=== PATIENT | female | born 1945 | race African-American/Black ===

== ENCOUNTER → 2017-03-28 | Outpatient (CLI) | payer MEDICARE, OTHER | END | disposition home or self-care (01) | LOC: LAB.O 16:41 | PROVIDERS: ATTEND Family Medicine | DX: I10 Essential (primary) hypertension (principal); E11.9 Type 2 diabetes mellitus without complications; E03.9 Hypothyroidism, unspecified ==

== ENCOUNTER → 2018-02-13 | Outpatient (CLI) | payer MEDICARE, OTHER ==
--- NOTE | 2018-02-14 08:17 | US ---
THYROID ULTRASOUND CLINICAL INFORMATION: Thyroid nodule TECHNIQUE: Thyroid sonography was performed. COMPARISON: None FINDINGS: Thyroid size: Right thyroid lobe measures 3.7 x 1.5 x 2.3 cm. Left thyroid lobe measures 4.0 x 1.4 x 1.3 cm. Isthmic thickness is normal at 2 mm. Texture: Hypoechoic, inhomogeneous Estimated total number of nodules >/=1 cm: 1 In the right thyroid lobe, in the lower pole, a hypoechoic nodule is seen which measures 2 x 1.4 x 1.6 cm. Color Doppler images show little or no flow within this nodule. At this size, sono guided fine-needle aspiration biopsy is recommended unless already performed. An additional hypoechoic lesion which could be debris filled cyst or another nodule measures 0.8 x 0.6 x 0.6 cm. This is also in the inferior right thyroid lobe but more medial and anterior in location compared to the previous larger nodule noted above. In the upper right thyroid lobe another nodule measures 0.5 x 0.5 x 0.4 cm. Along the posterior aspect the left thyroid lobe a hypoechoic nodule measures 0.7 x 0.5 x 0.3 cm. This could be within the thyroid gland or could be prominent parathyroid. Correlate with serum calcium values. In the the anterior mid left thyroid lobe another small nodule measures 0.4 x 0.4 x 0.2 cm. A third small nodule measures 0.4 x 0.5 x 0.2 cm. These can be followed up with a repeat thyroid sonogram in 1-2 years. IMPRESSION: Dominant nodule in the posteroinferior right thyroid lobe measuring 2 cm in greatest dimension. Further evaluation is recommended as discussed above. Electronically signed by: Rj Hough MD 02/14/2018 8:16 AM CDT
== END ==
LOC: US 15:00
PROVIDERS: ATTEND Family Medicine
DX: E04.1 Nontoxic single thyroid nodule (principal)

== ENCOUNTER → 2018-08-29 | Outpatient (CLI) | payer MEDICARE, OTHER | LOC: GMAJ 17:24 | PROVIDERS: ATTEND Family Medicine | DX: E03.9 Hypothyroidism, unspecified (principal) ==

== ENCOUNTER → 2020-03-13 | Outpatient (CLI) | payer MEDICARE, OTHER | LOC: BFHH 12:48 | PROVIDERS: ATTEND Family Medicine | DX: I10 Essential (primary) hypertension (principal); M79.7 Fibromyalgia; M43.22 Fusion of spine, cervical region ==

== ENCOUNTER → 2020-12-14 | Outpatient (CLI) | payer MEDICARE, OTHER | LOC: GMAJ 14:22 | PROVIDERS: ATTEND Family Medicine | DX: M06.4 Inflammatory polyarthropathy (principal); I10 Essential (primary) hypertension ==

== ENCOUNTER 2020-12-19 12:36 | Emergency (ER) | payer MEDICARE, OTHER ==
--- NOTE | 2020-12-19 12:38 | ED.PDOC ---
History of Present Illness - General Stated Complaint: Nausea and vomiting Time Seen by Provider: 12/19/20 12:37 Source: patient, family - History of Present Illness Initial Comments: Patient had her first shot of a Covid vaccination series 3 days ago. Following the shot she became nauseated. She has vomited 10 times since last night, and it is now becoming slightly blood-tinged.. Also complains of diarrhea which consists of 4 non-bloody explosive liquid stools in the last 24 hours.. Patient denies fever chills, cough, shortness of breath, upper respiratory symptoms. She is not complaining of abdominal pain except when she vomits. Patient unable to take her usual medications due to vomiting. Patient did not report any hives, swelling, itching. Timing/Duration: other - 3 days Improving Factors: nothing Worsening Factors: nothing Associated Symptoms: nausea/vomiting Allergies/Adverse Reactions: Allergies Acetaminophen [From Oxycodone W/Acetaminophen] Allergy (Verified 08/24/15 17:42) Vomitting Codeine Allergy (Verified 08/24/15 17:42) Vomitting Latex Allergy (Verified 08/24/15 17:42) Other Dangelo skin, per patient Morphine Allergy (Verified 08/24/15 17:42) Vomitting Nitrofurantoin Allergy (Verified 08/24/15 17:42) Diarrhea Oxycodone [From Oxycodone W/Acetaminophen] Allergy (Verified 08/24/15 17:42) Vomitting Metoclopramide [From Reglan] Adverse Reaction (Severe, Verified 08/24/15 17:36) Other State of depression Out of touch with surroundings Amitriptyline Adverse Reaction (Verified 08/24/15 17:42) Other rapid pulse, confusion Aspirin [From Talwin Compound] Adverse Reaction (Verified 08/24/15 17:36) Vomitting Cefadroxil Adverse Reaction (Verified 08/24/15 17:42) Other yeast infection Iron Adverse Reaction (Verified 08/24/15 17:42) Other "severe constipation" Montelukast [From Singulair] Adverse Reaction (Verified 08/24/15 17:42) Other Severe itching, whelps Oxazepam [From Serax] Adverse Reaction (Verified 08/24/15 17:42) Other unable to move arms, body limpness Pentazocine [From Talwin Compound] Adverse Reaction (Verified 08/24/15 17:36) Vomitting Sumatriptan [From Imitrex] Adverse Reaction (Verified 08/24/15 17:42) Other rapid pulse, lightheadedness Valacyclovir [From Valtrex] Adverse Reaction (Verified 08/24/15 17:42) Other N/V, "severe" dizziness, stomach pain, fevers/chills, "pain all over" Home Medications: Ambulatory Orders Atenolol [Tenormin] 50 mg PO BID 08/24/15 Oxybutynin Chloride [Oxybutynin Chloride ER] 25 mg PO DAILY 08/24/15 l-Methylfolate W/ Vitamin B6-V [Folbic Rf] 1 tab PO DAILY 08/24/15 Amlodipine Besylate 10 mg PO DAILY 12/19/20 B Complex 1 tablet PO BEDTIME 12/19/20 Donepezil Hydrochloride 10 mg PO DAILY 12/19/20 Esomeprazole Magnesium 40 mg PO DAILY 12/19/20 Famciclovir 500 mg PO BID 12/19/20 Famotidine 20 mg PO DAILY 12/19/20 Fexofenadine HCl [Allergy Relief] 180 mg PO DAILY 12/19/20 Gabapentin 800 mg PO BID 12/19/20 Hydroxychloroquine Sulfate [Hydroxychloroquine Sulfat] 1 tablet PO BID 12/19/20 Magnesium [Magnesium 250 mg] 1 tab PO DAILY 12/19/20 Olmesartan Medoxomil-Hydrochlo [Olmesartan Medoxomil/Hydr 40-25 mg] 1 tab PO DAILY 12/19/20 Ondansetron Odt [Zofran ODT] 4 mg PO Q6H PRN 3 Days #12 tab 12/19/20 Venlafaxine HCl [Venlafaxine HCl ER] 37.5 mg PO DAILY 12/19/20 Review of Systems - Review of Systems Constitutional: States: chills. Denies: fever EENTM: States: no symptoms reported Respiratory: States: no symptoms reported Cardiology: States: no symptoms reported Gastrointestinal/Abdominal: States: see HPI, abdominal pain, diarrhea, nausea, vomiting Genitourinary: States: no symptoms reported Musculoskeletal: States: no symptoms reported Skin: States: no symptoms reported Neurological: States: no symptoms reported Endocrine: States: no symptoms reported Hematologic/Lymphatic: States: no symptoms reported Past Medical History (General) - Patient Medical History Hx Congestive Heart Failure: No Hx Hypertension: Yes Hx Diabetes: No Hx Gastroesophageal Reflux: Yes - Vaccination History Hx Tetanus, Diphtheria Vaccination: No - unknown Hx Influenza Vaccination: Yes - 07/2015 Hx Pneumococcal Vaccination: Yes - 07/2015 - Social History Hx Tobacco Use: No Family Medical History - Family History Mother Living Status: Still Living Hx Family Hypertension: Yes Hx Cardiac Disease: Yes - enlarged heart Hx Family;Other: esophageal problem Father Living Status: Age at (years of age): 84 Hx Family Cancer: Yes - colon Paternal Grandparents Name: grandmother Living Status: Age at (years of age): 94 Hx Cardiac Disease: Yes - enlarged heart Hx Family;Other: poor circulation, bilateral BKA Physical Exam - Physical Exam General Appearance: Alert, Comfortable Ears, Nose, Throat: normal pharynx, other - Moist mucous membranes Neck: non-tender, full range of motion, supple Respiratory: normal breath sounds Cardiovascular/Chest: regular rate, rhythm Gastrointestinal/Abdominal: normal bowel sounds, non tender, soft Back Exam: normal inspection, no CVA tenderness Extremity: normal range of motion, no calf tenderness 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 Zofran 4 mg IV. As of 1:51 PM the patient had urinated and the nausea had subsided. - Results/Orders Results/Orders: Rapid nasal swab testing COVID-19 negative Laboratory Results - last 24 hr 12/19/20 12/19/20 13:03 13:03 WBC 8.6 RBC 4.53 Hgb 13.5 Hct 40.8 MCV 90.0 MCH 29.9 MCHC 33.2 RDW 14.8 H Plt Count 307 MPV 7.6 Absolute Neuts (auto) 6.30 Absolute Lymphs (auto) 1.70 Absolute Monos (auto) 0.50 Absolute Eos (auto) 0.10 Absolute Basos (auto) 0.00 Neutrophils % 73.1 Lymphocytes % 19.5 L Monocytes % 6.3 Eosinophils % 0.7 L Basophils % 0.4 Sodium 142 Potassium 3.0 L Chloride 102 Carbon Dioxide 29 Anion Gap 14.0 BUN 9 Creatinine 0.73 BUN/Creatinine Ratio 12.3 Random Glucose 123 H Serum Osmolality 283.2 Calcium 8.9 Total Bilirubin 0.6 AST 24 ALT 26 Alkaline Phosphatase 75 Serum Total Protein 7.6 Albumin 4.0 Globulin 3.6 H Albumin/Globulin Ratio 1.1 Departure - Departure Clinical Impression: Gastroenteritis, Hypertension Time of Disposition: 13:50 Disposition: Discharge to Home or Self Care Condition: Good Departure Forms: ED Discharge - Pt. Copy, Patient Portal Self Enrollment Instructions: Viral Gastroenteritis, Adult (DC) Diet: other - Start with a clear liquid diet and then gradually advance diet as tolerated. Referrals: Matt Coleman MD [Primary Care Provider] - 1-2 Weeks Prescriptions: Ondansetron Odt [Zofran ODT] 4 mg PO Q6H PRN 3 Days #12 tab PRN Reason: Vomiting Home Medications: Ambulatory Orders Atenolol [Tenormin] 50 mg PO BID 08/24/15 Oxybutynin Chloride [Oxybutynin Chloride ER] 25 mg PO DAILY 08/24/15 l-Methylfolate W/ Vitamin B6-V [Folbic Rf] 1 tab PO DAILY 08/24/15 Amlodipine Besylate 10 mg PO DAILY 12/19/20 B Complex 1 tablet PO BEDTIME 12/19/20 Donepezil Hydrochloride 10 mg PO DAILY 12/19/20 Esomeprazole Magnesium 40 mg PO DAILY 12/19/20 Famciclovir 500 mg PO BID 12/19/20 Famotidine 20 mg PO DAILY 12/19/20 Fexofenadine HCl [Allergy Relief] 180 mg PO DAILY 12/19/20 Gabapentin 800 mg PO BID 12/19/20 Hydroxychloroquine Sulfate [Hydroxychloroquine Sulfat] 1 tablet PO BID 12/19/20 Magnesium [Magnesium 250 mg] 1 tab PO DAILY 12/19/20 Olmesartan Medoxomil-Hydrochlo [Olmesartan Medoxomil/Hydr 40-25 mg] 1 tab PO DAILY 12/19/20 Ondansetron Odt [Zofran ODT] 4 mg PO Q6H PRN 3 Days #12 tab 12/19/20 Venlafaxine HCl [Venlafaxine HCl ER] 37.5 mg PO DAILY 12/19/20 Comments: If you develop uncontrollable vomiting, large amounts of blood in the vomit, bloody stools or generally feel worse then return to the emergency room. Additional occasional vomiting or diarrhea may occur. See your doctor and notify your fitness consultant if your are not completely recovered in the next day or 2. Take [id number] Pepcid pills twice per day to reduce stomach acid irritation.
[2020-12-19] MEDS ORDERED: SODIUM CHLORIDE 0.9% 1000ML 1,000 ML IVS ONE (12:44)
[2020-12-19] MEDS ORDERED: ONDANSETRON INJ 4 MG/2 ML VIAL IV ONE (12:44)
[2020-12-19 13:05] VITALS: O2SAT 95
[2020-12-19] MEDS ORDERED: FAMOTIDINE IV PREMIX 20 MG in PREMIX BAG 1 BAG IVPB ONE (13:10)
[2020-12-19 14:09] VITALS: BP 169/57; TEMP 97.3
== END 2020-12-19 14:09 | disposition home or self-care (01) ==
LOC: ER 12:36
DX: K52.9 Noninfective gastroenteritis and colitis, unspecified (principal); I10 Essential (primary) hypertension; Z20.822 Contact with and (suspected) exposure to COVID-19; K21.9 Gastro-esophageal reflux disease without esophagitis; Z79.899 Other long term (current) drug therapy; Z88.8 Allergy status to other drugs, medicaments and biological substances; Z88.1 Allergy status to other antibiotic agents; Z88.6 Allergy status to analgesic agent; Z88.5 Allergy status to narcotic agent; Z91.040 Latex allergy status
CPT/HCPCS: 36415; 80053; 85025; 87635; J2405; J3490; J7030

== ENCOUNTER 2020-12-20 12:54 | Emergency (ER) | payer MEDICARE, OTHER ==
[2020-12-20 13:13] VITALS: TEMP 98.3
[2020-12-20] MEDS ORDERED: ONDANSETRON ODT 8 MG TAB ONE (13:55)
[2020-12-20] MEDS: ONDANSETRON ODT 8 MG TAB SL ONE (14:08)
[2020-12-20] MEDS: ONDANSETRON INJ 4 MG/2 ML VIAL IV ONE (14:44)
[2020-12-20] MEDS: SUCRALFATE 1 GM/10 ML 1 GM UD PO ONE (16:11)
[2020-12-20] MEDS: FAMOTIDINE 20 MG TAB PO ONE (16:11)
[2020-12-20] MEDS: PROMETHAZINE HCL 25 MG TAB PO ONE (16:11)
[2020-12-20] MEDS: KCL 20 MEQ/NS 1,000 ML IVS ONE (16:44)
[2020-12-20] MEDS: SCOPOLAMINE PATCH 1.5MG 1 EA TD ONE (16:50)
--- NOTE | 2020-12-20 16:54 | ED.PDOC ---
History of Present Illness - General Chief Complaint: GI Problem Stated Complaint: nausea and vomiting Time Seen by Provider: 12/20/20 13:01 Source: patient Exam Limitations: no limitations - History of Present Illness Initial Comments: The patient is a 75-year-old female presented emergency room secondary to some persistent nausea. She has not really been throwing up. No further diarrhea. She did not have a good oral intake over the last 24 hours secondary to nausea. Due to the weather she is not yet been able to fill her Zofran. No fever. No point abdominal pain. No syncope. No back pain. No urinary symptoms. Stomach is simply still queasy. Timing/Duration: other - 48 hours Severity: moderate Improving Factors: nothing Worsening Factors: eating Associated Symptoms: denies symptoms Allergies/Adverse Reactions: Allergies Acetaminophen [From Oxycodone W/Acetaminophen] Allergy (Verified 12/20/20 13:14) Vomitting Codeine Allergy (Verified 12/20/20 13:14) Vomitting Latex Allergy (Verified 12/20/20 13:14) Other Dangelo skin, per patient Morphine Allergy (Verified 12/20/20 13:14) Vomitting Nitrofurantoin Allergy (Verified 12/20/20 13:14) Diarrhea Oxycodone [From Oxycodone W/Acetaminophen] Allergy (Verified 12/20/20 13:14) Vomitting Metoclopramide [From Reglan] Adverse Reaction (Severe, Verified 12/20/20 13:14) Other State of depression Out of touch with surroundings Amitriptyline Adverse Reaction (Verified 12/20/20 13:14) Other rapid pulse, confusion Aspirin [From Talwin Compound] Adverse Reaction (Verified 12/20/20 13:14) Vomitting Cefadroxil Adverse Reaction (Verified 12/20/20 13:14) Other yeast infection Iron Adverse Reaction (Verified 12/20/20 13:14) Other "severe constipation" Montelukast [From Singulair] Adverse Reaction (Verified 12/20/20 13:14) Other Severe itching, whelps Oxazepam [From Serax] Adverse Reaction (Verified 12/20/20 13:14) Other unable to move arms, body limpness Pentazocine [From Talwin Compound] Adverse Reaction (Verified 12/20/20 13:14) Vomitting Sumatriptan [From Imitrex] Adverse Reaction (Verified 12/20/20 13:14) Other rapid pulse, lightheadedness Valacyclovir [From Valtrex] Adverse Reaction (Verified 12/20/20 13:14) Other N/V, "severe" dizziness, stomach pain, fevers/chills, "pain all over" Home Medications: Ambulatory Orders Atenolol [Tenormin] 50 mg PO BID 08/24/15 Oxybutynin Chloride [Oxybutynin Chloride ER] 25 mg PO DAILY 08/24/15 l-Methylfolate W/ Vitamin B6-V [Folbic Rf] 1 tab PO DAILY 08/24/15 Amlodipine Besylate 10 mg PO DAILY 12/19/20 B Complex 1 tablet PO BEDTIME 12/19/20 Donepezil Hydrochloride 10 mg PO DAILY 12/19/20 Esomeprazole Magnesium 40 mg PO DAILY 12/19/20 Famciclovir 500 mg PO BID 12/19/20 Famotidine 20 mg PO DAILY 12/19/20 Fexofenadine HCl [Allergy Relief] 180 mg PO DAILY 12/19/20 Gabapentin 800 mg PO BID 12/19/20 Hydroxychloroquine Sulfate [Hydroxychloroquine Sulfat] 1 tablet PO BID 12/19/20 Magnesium [Magnesium 250 mg] 1 tab PO DAILY 12/19/20 Olmesartan Medoxomil-Hydrochlo [Olmesartan Medoxomil/Hydr 40-25 mg] 1 tab PO DAILY 12/19/20 Ondansetron Odt [Zofran ODT] 4 mg PO Q6H PRN 3 Days #12 tab 12/19/20 Venlafaxine HCl [Venlafaxine HCl ER] 37.5 mg PO DAILY 12/19/20 Review of Systems - Review of Systems Constitutional: States: malaise EENTM: States: no symptoms reported Respiratory: States: no symptoms reported Cardiology: States: no symptoms reported Gastrointestinal/Abdominal: States: nausea Genitourinary: States: no symptoms reported Musculoskeletal: States: no symptoms reported Skin: States: no symptoms reported Neurological: States: no symptoms reported Endocrine: States: no symptoms reported All other Systems: No Change from Baseline Past Medical History (General) - Patient Medical History Hx Seizures: No Hx Stroke: No Hx Dementia: No Hx Asthma: No Hx of COPD: No Hx Cardiac Disorders: No Hx Congestive Heart Failure: No Hx Pacemaker: No Hx Hypertension: Yes Hx Thyroid Disease: No Hx Diabetes: No Hx Gastroesophageal Reflux: Yes Hx Renal Disease: No Hx Cancer: No Hx of HIV: No Hx Hepatitis C: No Hx MRSA: No - Vaccination History Hx Tetanus, Diphtheria Vaccination: No - unknown Hx Influenza Vaccination: Yes Hx Pneumococcal Vaccination: Yes - Social History Hx Tobacco Use: No Hx Alcohol Use: No Family Medical History - Family History Mother Living Status: Still Living Hx Family Hypertension: Yes Hx Cardiac Disease: Yes - enlarged heart Hx Family;Other: esophageal problem Father Living Status: Age at (years of age): 84 Hx Family Cancer: Yes - colon Paternal Grandparents Name: grandmother Living Status: Age at (years of age): 94 Hx Cardiac Disease: Yes - enlarged heart Hx Family;Other: poor circulation, bilateral BKA Physical Exam - Physical Exam General Appearance: Alert, Comfortable, No apparent distress Eye Exam: bilateral normal Ears, Nose, Throat: hearing grossly normal, normal pharynx Neck: full range of motion, supple Respiratory: lungs clear, normal breath sounds, no respiratory distress, no accessory muscle use Cardiovascular/Chest: normal peripheral pulses, regular rate, rhythm, no edema Peripheral Pulses: radial,right: 2+, radial,left: 2+ Gastrointestinal/Abdominal: non tender, soft Rectal Exam: deferred Back Exam: no CVA tenderness, no vertebral tenderness Extremity: non-tender, normal inspection, no pedal edema, normal capillary refill Neurologic: hot shot II-XII nml as tested, alert, normal mood/affect, oriented x 3 Skin Exam: normal color Comments: Vital Signs - 24 hr 12/20/20 13:08 Temperature 98.3 F Pulse Rate [ 68 Left Radial] Respiratory 18 Rate Blood Pressure 185/71 [Left Arm] O2 Sat by Pulse 96 Oximetry Progress - Progress Progress: 12/20/20 16:54 The patient is a 75-year-old female presented emergency room secondary to persistent nausea. The patient is to use her Zofran as necessary to control nausea and vomiting. She also had a scopolamine patch placed which can remain in place for up to 72 hours giving a small continuous amount of nausea medication. If the patient become significantly dizzy or confused then the patch is to be removed. Additionally the patient needs to eat small amounts of bland foods. She does need to continue with water or other mild beverages. She does have mild dehydration but is now tolerating oral intake and due to difficulty with peripheral IV access, will be allowed to hydrate orally. Laboratory work is reassuring today. I would also recommend that she sisal picker [id number] Pepcid and take it twice daily for the next week or 2. ER warnings are given. Follow-up with primary care doctor later in the week. shona boles [phone] - Results/Orders Results/Orders: Laboratory Tests 12/20/20 12/20/20 12/20/20 13:38 13:38 16:19 WBC 6.9 RBC 4.60 Hgb 13.8 Hct 41.2 MCV 89.7 MCH 30.1 MCHC 33.5 RDW 14.8 H Plt Count 333 MPV 7.9 Absolute Neuts (auto) 4.60 Absolute Lymphs (auto) 1.80 Absolute Monos (auto) 0.40 Absolute Eos (auto) 0.00 Absolute Basos (auto) 0.00 Neutrophils % 66.9 Lymphocytes % 26.4 Monocytes % 5.8 Eosinophils % 0.2 L Basophils % 0.7 Sodium 140 Potassium 3.2 L Chloride 98 L Carbon Dioxide 30 Anion Gap 15.2 BUN 12 Creatinine 0.78 BUN/Creatinine Ratio 15.4 Random Glucose 103 Serum Osmolality 279.4 Calcium 9.6 Magnesium 1.8 Total Bilirubin 0.6 AST 32 ALT 30 Alkaline Phosphatase 78 Creatine Kinase 153 H CK-MB (CK-2) 4.0 CK-MB (CK-2) % 2.61 Troponin I < 0.02 Serum Total Protein 8.1 Albumin 4.3 Globulin 3.8 H Albumin/Globulin Ratio 1.1 Amylase 45 Lipase 20 L Urine Color Dk yellow H Urine Appearance Turbid Urine pH 5.5 Ur Specific [place] >= 1.030 Urine Protein 100 H Urine Glucose (UA) Negative Urine Ketones 40 H Urine Blood Negative Urine Nitrite Negative Urine Bilirubin Small H Urine Urobilinogen 1.0 Ur Leukocyte Esterase Trace H Urine RBC 0-1 Urine WBC 3-5 H Ur Epithelial Cells 0 Amorphous Sediment 3+ Urine Bacteria 3+ H Urine Mucus Trace Departure - Departure Clinical Impression: Gastroenteritis due to COVID-19 virus Disposition: Discharge to Home or Self Care Condition: Fair Departure Forms: ED Discharge - Pt. Copy, Patient Portal Self Enrollment Instructions: Viral Gastroenteritis, Adult (DC) Diet: bland diet Activity: increase activity as tolerated Referrals: Matt Coleman MD [Primary Care Provider] - 1-2 Weeks Home Medications: Ambulatory Orders Atenolol [Tenormin] 50 mg PO BID 08/24/15 Oxybutynin Chloride [Oxybutynin Chloride ER] 25 mg PO DAILY 08/24/15 l-Methylfolate W/ Vitamin B6-V [Folbic Rf] 1 tab PO DAILY 08/24/15 Amlodipine Besylate 10 mg PO DAILY 12/19/20 B Complex 1 tablet PO BEDTIME 12/19/20 Donepezil Hydrochloride 10 mg PO DAILY 12/19/20 Esomeprazole Magnesium 40 mg PO DAILY 12/19/20 Famciclovir 500 mg PO BID 12/19/20 Famotidine 20 mg PO DAILY 12/19/20 Fexofenadine HCl [Allergy Relief] 180 mg PO DAILY 12/19/20 Gabapentin 800 mg PO BID 12/19/20 Hydroxychloroquine Sulfate [Hydroxychloroquine Sulfat] 1 tablet PO BID 12/19/20 Magnesium [Magnesium 250 mg] 1 tab PO DAILY 12/19/20 Olmesartan Medoxomil-Hydrochlo [Olmesartan Medoxomil/Hydr 40-25 mg] 1 tab PO DAILY 12/19/20 Ondansetron Odt [Zofran ODT] 4 mg PO Q6H PRN 3 Days #12 tab 12/19/20 Venlafaxine HCl [Venlafaxine HCl ER] 37.5 mg PO DAILY 12/19/20 Additional Instructions: The patient is a 75-year-old female presented emergency room secondary to persistent nausea. The patient is to use her Zofran as necessary to control nausea and vomiting. She also had a scopolamine patch placed which can remain in place for up to 72 hours giving a small continuous amount of nausea medication. If the patient become significantly dizzy or confused then the patch is to be removed. Additionally the patient needs to eat small amounts of bland foods. She does need to continue with water or other mild beverages. She does have mild dehydration but is now tolerating oral intake and due to difficulty with peripheral IV access, will be allowed to hydrate orally. Laboratory work is reassuring today. I would also recommend that she sisal picker [id number] Pepcid and take it twice daily for the next week or 2. ER warnings are given. Follow-up with primary care doctor later in the week.
[2020-12-20] MEDS ORDERED: SCOPOLAMINE PATCH 1.5MG 1 EA TD ONE (16:59)
[2020-12-20 17:35] VITALS: BP 198/79; O2SAT 94
== END 2020-12-20 17:10 | disposition home or self-care (01) ==
LOC: ER 12:54
DX: U07.1 COVID-19 (principal); A08.39 Other viral enteritis; I10 Essential (primary) hypertension; Z79.899 Other long term (current) drug therapy; Z88.8 Allergy status to other drugs, medicaments and biological substances; Z88.1 Allergy status to other antibiotic agents; Z88.6 Allergy status to analgesic agent; Z88.5 Allergy status to narcotic agent; Z91.040 Latex allergy status
CPT/HCPCS: 36415; 80053; 81001; 82150; 82550; 82553; 83690; 83735; 84484; 85025; J2405; Q0169